=== PATIENT | male | born 1960 | race Caucasian/White ===

== ENCOUNTER → 2023-08-09 09:17 | Outpatient (REF) | payer OTHER, SELFPAY | LOC: RCS 09:17 | PROVIDERS: ATTENDING PHYSICIAN Internal Medicine Cardiovascular Disease; FAMILY PHYSICIAN Family Medicine | DX: R94.31 Abnormal electrocardiogram [ECG] [EKG] (principal) | CPT/HCPCS: 93017; 93350 ==

== ENCOUNTER 2024-04-29 06:22 | Day surgery (SDC) | payer OTHER, SELFPAY | END 2024-04-29 13:54 | disposition home or self-care (01) | LOC: GI 06:22 | PROVIDERS: ATTENDING PHYSICIAN Internal Medicine Gastroenterology | DX: Z12.11 Encounter for screening for malignant neoplasm of colon (principal); K57.30 Diverticulosis of large intestine without perforation or abscess without bleeding; K64.8 Other hemorrhoids | CPT/HCPCS: G0121 ==